=== PATIENT | female | born 1945 | race Caucasian/White ===

== ENCOUNTER → 2017-09-08 | Outpatient (CLI) | payer MEDICARE, OTHER ==
[~2017-09-08] MED LIST: ACET500T68 PO; ALLO-119 PO; AMIT-106 PO; ASPI-715 PO; ASPI-757 PO; ATOR20TA22 PO; CALC-597 PO; CALC-901 PO; CALC600T71 PO; CETI10CA8 PO; CYCL1DRO6 OU; DICY10CA11 PO; DICY10CA62 PO; DILT180C73 PO; DOXY-179 PO; ESOM40CA42 PO; GABA-1 PO; GLUC100026 PO; HCTZ25 PO; LEVO100T95 PO; LEVO150C4 PO; LEVO175T42 PO; LOR5/325 PO; LOSA100T67 PO; METF500T4 PO; METO50TA19 PO; MULT-865 PO; MULT1TAB64 PO; NAPR-1043 PO; NAPR-744 PO; NEB5 PO; OLM20 PO; OMEG-11 PO; OMEP-137 PO; OMEP40CA48 PO; POTASSIUM; RANI-324 PO; ROSU20TA13 PO; SIMV-44 PO; SIMV-54 PO; WARF5TAB23 PO; [UNRECOGNIZED DRUG - CODE] PO; vit d
== END ==
LOC: LAB 11:18
PROVIDERS: ATTEND Emergency Medicine
DX: E11.9 Type 2 diabetes mellitus without complications (principal)
CPT/HCPCS: 36415; 82465; 83718; 84478

== ENCOUNTER → 2017-11-18 | Outpatient (CLI) | payer MEDICARE, OTHER ==
[~2017-11-18] MED LIST changes: +ALBU8.5H IH; -RANI-324 PO; +RANI-366 PO
--- NOTE | 2017-11-18 10:03 | EKG ---
FACILITY: [facility] PATIENT NAME: ESA CROCKER : [id number] MR: [id number] V: [id number] EXAM DATE: ORDERING PHYSICIAN: KENTRELL CISNEROS TECHNOLOGIST: KARLEE KNIGHT Test Reason : PRE OP CLEARANCE Blood Pressure : / mmHG Vent. Rate : 075 BPM Atrial Rate : 075 BPM P-R Int : 224 ms QRS Dur : 086 ms QT Int : 400 ms P-R-T Axes : 000 023 008 degrees QTc Int : 446 ms Sinus rhythm with 1st degree AV block Septal infarct , age undetermined Abnormal ECG No previous ECGs available Confirmed by TERESITA MADSEN ([id number]) on 11/18/2017 2:59:01 PM Referred By: Confirmed By:TERESITA MADSEN
== END ==
LOC: RESP 09:45
PROVIDERS: ATTEND Emergency Medicine
DX: Z01.818 Encounter for other preprocedural examination (principal); Z01.810 Encounter for preprocedural cardiovascular examination; R94.31 Abnormal electrocardiogram [ECG] [EKG]
CPT/HCPCS: 81001

== ENCOUNTER 2017-12-03 00:51 | Day surgery (SDC) | payer MEDICARE, OTHER ==
[2017-12-03] VITALS (7 sets, daily range): BP systolic 100–125; BP diastolic 57–76
[~2017-12-03] VITALS: Ht 157.5 cm; Wt 108.9 kg
[2017-12-03] MEDS ORDERED: PROPOFOL EMUL(*) 10MG/ML 20 ML 20 ML ONE (06:04)
[2017-12-03] MEDS ORDERED: ONDANSETRON 4 MG/2 ML VIAL ONE (06:04)
[2017-12-03] MEDS ORDERED: LIDOCAINE MPF 1% 5 ML VIAL ONE (06:04)
[2017-12-03] MEDS ORDERED: METOCLOPRAMIDE 10 MG/2 ML SDV ONE (06:04)
[2017-12-03] MEDS ORDERED: DEXAMETHASONE SOD 4 MG/ML VIAL ONE (06:05)
[2017-12-03] MEDS ORDERED: fentaNYL CITR 100 MCG/2 ML AMP ONE ×2 (07:10→09:15)
[2017-12-03] MEDS ORDERED: NORMOSOL R SOLN(*) 1000 ML BAG 1,000 ML IV PRN (07:25)
[2017-12-03] MEDS ORDERED: ceFAZolin(*) 2GM/D5W 50ML 50 ML IVPB ONE (07:25)
[2017-12-03] MEDS ORDERED: LIDOCAINE/SOD BICARB 8.4% SYR ID ONE (07:25)
[2017-12-03] MEDS ORDERED: MIDAZOLAM 2 MG/2 ML VIAL IVP PRN (07:25)
[2017-12-03] MEDS ORDERED: BUPIV/EPI 0.25% 1:200,000 50ML INFIL ONE (07:47)
[2017-12-03] MEDS ORDERED: MORPHINE 10 MG/ML SYR ONE (07:47)
[2017-12-03] MEDS ORDERED: NS(*) 0.9% 10 ML VIAL 10 ML ONE (07:47)
[2017-12-03] MEDS ORDERED: LIDO/EPI 1% MDV 1:100,000 20ML INFIL ONE (07:48)
[2017-12-03] MEDS ORDERED: HYDR-4309 PO (08:59)
[2017-12-03] MEDS ORDERED: CEPH500T7 PO (09:00)
[2017-12-03] MEDS ORDERED: APAP/HYDROCODONE 325/5 TAB ONE (10:51)
--- NOTE | 2017-12-04 07:30 | OPERATIVE REPORT 1 ---
EVENT DATE: December 03, 2017 SURGEON: Benito Dockery M.D. ANESTHESIOLOGIST: Cesario Calhoun MD ANESTHESIA: LMA APPLICATION PENETRATION TESTER: JOSEPH Mitchell PREOPERATIVE DIAGNOSIS 1. Left knee medial and lateral meniscus tear. 2. Chondromalacia degenerative joint disease (DJD). POSTOPERATIVE DIAGNOSIS 1. Left knee medial and lateral meniscus tear. 2. Chondromalacia degenerative joint disease (DJD). PROCEDURE PERFORMED 1. Left knee arthroscopy with partial and medial lateral meniscectomies. 2. Chondroplasty, tricompartmental. 3. Loose body removal of suprapatellar pouch, 5x5 mm. ESTIMATED BLOOD LOSS Minimal. DRAINS None. SPECIMENS None. COMPLICATIONS None. TOURNIQUET TIME See anesthesia record history. IMPLANTS USED None. INDICATIONS Ms. Lainez is a 71-year-old female with a history of left knee pain. She was seen and evaluated in the orthopaedic surgery clinic and found to have a complex tear of anterior posterior horn, medial and lateral meniscus as well as some tricompartmental DJD and chondromalacia. Following discussion of risks, benefits, alternatives and possible complications, she wished to proceed with surgical intervention. DESCRIPTION OF PROCEDURE The patient was brought to the operating room and placed on the operating table in supine position. Appropriate time-out was performed, identifying patient, limb of surgery and surgical procedure. The patient was given preoperative IV antibiotics and underwent LMA anesthesia. A well-padded tourniquet was placed on the left lower extremity. The left lower extremity was prepped and draped in sterile fashion. Knee examination demonstrated negative Matt's, negative anterior and posterior drawer. MCL and ACL were stable. Once complete, superior medial inferior portal was established after tourniquet was brought up to 300 mmHg and the knee was insufflated. Distal lateral camera portal was established. The camera was placed intra-articularly. Suprapatellar pouch demonstrated some loose articular cartilage debris and one larger body, 5x5 mm, in particular. The patella and trochlea both demonstrate Grade 2-3 change but the patella is tracking centrally at 39 degrees engagement. The medial compartment was visualized. Medial portal was established under direct visualization. A probe was placed intra-articularly. There was complex tearing of the posterior horn and body of the medial meniscus. This was debrided with combination of meniscal biters and jacinto until a nice smooth transition was obtained. There was some Grade 2 chondral wear on the medial femoral condyle and tibial plateau. These were debrided with chondroplasty. The loose body that was seen previously was removed with shaver as were the smaller loose bodies in the suprapatellar pouch. The ACL and PCL were probed and felt to be stable. Lateral compartment demonstrated complex tearing of the lateral meniscus as well. This was debrided with shaver until smooth transitions of the posterior horn body and anterior horn were established. There was also some Grade 2 chondral wear, which was debrided with chondroplasty. The area of Grade 3 change was then debrided with chondroplasty and the shaver through both the medial and lateral portals until stable transitions were obtained. All instrumentation was then removed. The knee was drained. Portal sites were closed with 4-0 Monocryl. Standard postoperative anesthetic cocktail was injected intra-articularly. Postoperative dressing was applied. The patient was extubated and transferred to the PACU in stable condition. She will placed on my knee arthroscopy protocol. Followup with me in 10-14 days. BHUMIKA
== END 2017-12-03 09:45 | disposition home or self-care (01) ==
LOC: OR 00:51
PROVIDERS: ATTEND Orthopaedic Surgery
DX: S83.282A Other tear of lateral meniscus, current injury, left knee, initial encounter (principal); S83.242A Other tear of medial meniscus, current injury, left knee, initial encounter; E11.9 Type 2 diabetes mellitus without complications
CPT/HCPCS: 29880; 36416; 82948; J1100; J2001; J2270; J2405; J2704; J2765; J3010; J0690

== ENCOUNTER → 2018-04-26 | Outpatient (CLI) | payer MEDICARE, OTHER ==
[~2018-04-26] MED LIST changes: +CEPH500T7 PO; +DIPH0.5D12 IM; +GLIM1TAB25 PO; +HYDR-653 PO; -LOSA100T67 PO; +LOSA100T69 PO; -ROSU20TA13 PO; +ROSU20TA5 PO
[2018-04-26 13:33] LABS: PLATELET COUNT, AUTOMATED 315 K/uL (150-450)
[2018-04-26 14:03] LABS: LDL CHOLESTEROL 58 mg/dl
== END ==
LOC: LAB 12:45
PROVIDERS: ATTEND Emergency Medicine
DX: E11.9 Type 2 diabetes mellitus without complications (principal); E03.9 Hypothyroidism, unspecified; I10 Essential (primary) hypertension
CPT/HCPCS: 36415; 82040; 82247; 82310; 82374; 82435; 82465; 82565; 82947; 83036; 83718; 84075; 84132; 84155; 84295; 84443; 84450; 84460; 84478; 84520; 85025

== ENCOUNTER → 2018-09-26 | Outpatient (CLI) | payer MEDICARE, OTHER ==
[~2018-09-26] MED LIST changes: +EMPA10TA PO; -LOSA100T69 PO; +LOSA100T75 PO; +PNEU0.5D3 IM
== END ==
LOC: LAB 10:18
PROVIDERS: ATTEND Emergency Medicine
DX: E11.9 Type 2 diabetes mellitus without complications (principal)
CPT/HCPCS: 36415; 83036

== ENCOUNTER → 2018-09-28 | Outpatient (CLI) | payer MEDICARE, OTHER | LOC: LAB 14:58 | PROVIDERS: ATTEND Emergency Medicine | DX: R19.7 Diarrhea, unspecified (principal) | CPT/HCPCS: 87045; 87177; 87493 ==

== ENCOUNTER → 2018-10-28 | Outpatient (CLI) | payer MEDICARE, OTHER ==
[~2018-10-28] MED LIST changes: -DIPH0.5D12 IM; +DIPH0.5S2 IM
[2018-10-28 16:30] LABS: PLATELET COUNT, AUTOMATED 310 K/uL (150-450)
--- NOTE | 2018-10-28 16:44 | EKG ---
FACILITY: [facility] - [place] PATIENT NAME: ESA CROCKER : [id number] MR: [id number] V: [id number] EXAM DATE: ORDERING PHYSICIAN: TERESITA HUMMEL TECHNOLOGIST: KASEY Test Reason : PRE OP Blood Pressure : / mmHG Vent. Rate : 076 BPM Atrial Rate : 076 BPM P-R Int : 212 ms QRS Dur : 086 ms QT Int : 410 ms P-R-T Axes : 050 -22 -13 degrees QTc Int : 461 ms Sinus rhythm with 1st degree AV block Low voltage QRS Septal infarct (cited on or before 18-NOV-2017) Abnormal ECG When compared with ECG of 18-NOV-2017 08:50, No significant change was found Confirmed by Joao Reyna ([id number]) on 10/28/2018 10:04:01 PM Referred By: ESTEPHANIE Confirmed By:Joao Keith
== END ==
LOC: LAB 16:09
PROVIDERS: ATTEND Surgery
DX: R94.31 Abnormal electrocardiogram [ECG] [EKG] (principal); E11.9 Type 2 diabetes mellitus without complications
CPT/HCPCS: 36415; 82310; 82374; 82435; 82565; 82947; 84132; 84295; 84520; 85025; 93005

== ENCOUNTER 2018-11-02 01:53 | Day surgery (SDC) | payer MEDICARE, OTHER ==
[2018-11-02] VITALS (7 sets, daily range): BP systolic 88–138; BP diastolic 33–90
[~2018-11-02] VITALS: Ht 157.5 cm; Wt 104.8 kg
[2018-11-02] MEDS ORDERED: PROPOFOL EMUL(*) 10MG/ML 20 ML 20 ML ONE ×3 (07:11→12:27)
[2018-11-02] MEDS ORDERED: NORMOSOL R SOLN(*) 1000 ML BAG 1,000 ML IV PRN (11:05)
[2018-11-02] MEDS ORDERED: LIDOCAINE/SOD BICARB 8.4% SYR ID ONE (11:05)
--- NOTE | 2018-11-02 12:54 | Short(Outpt) Discharge Summary ---
Discharge Summary Reason for Hosp/Final Diag: (1) Loose stools Status: Chronic Hospital Course & Plan: Colonoscopy with polypectomy x3 and random biopsies completed without problems. (2) Abdominal pain Status: Chronic (3) GERD (gastroesophageal reflux disease) Status: Chronic Hospital Course & Plan: EGD with biopsies completed without problems. Departure Discharge to: Home, Self Care Discharge Instructions Home Meds Active Scripts Metformin Hcl (METFORMIN HCL ER) 500 Mg Tab.er.24, 1 TAB PO QDAY, #90 TAB 3 Refills Prov:KENTRELL CISNEROS MD 10/14/18 Levothyroxine Sodium (LEVOTHYROXINE SODIUM) 175 Mcg Tablet, 175 MCG PO QDAY, #90 TAB 1 Refill Prov:KENTRELL CISNEROS MD 09/28/18 Dicyclomine Hcl (DICYCLOMINE HCL) 10 Mg Capsule, 10 MG PO BID, #180 CAPSULE 1 Refill Prov:KENTRELL CISNEROS MD 09/28/18 Empagliflozin (Jardiance) 10 Mg Tablet, 1 TAB PO DAILY, #30 TAB 2 Refills Prov:KENTRELL CISNEROS MD 09/27/18 Rosuvastatin Calcium (Rosuvastatin Calcium) 20 Mg Tablet, 1 TAB PO DAILY, #90 TAB 4 Refills Prov:KENTRELL CISNEROS MD 09/26/18 Metoprolol Succinate (METOPROLOL SUCCINATE) 50 Mg Tab.er.24h, 1 TAB PO BID, #180 TAB 3 Refills Prov:KENTRELL CISNEROS MD 08/16/18 Losartan Potassium (LOSARTAN POTASSIUM) 100 Mg Tablet, 100 MG PO QDAY, #90 TAB 3 Refills Prov:KENTRELL CISNEROS MD 07/18/18 Amitriptyline Hcl (AMITRIPTYLINE HCL) 25 Mg Tablet, 25 MG PO QHS, #90 TAB 3 Refills Prov:KENTRELL CISNEROS MD 07/01/18 Aspirin (ASPIRIN) 325 Mg Tablet, 325 MG PO DAILY PRN for atril fibrillation for 90 Days, #90 TAB 6 Refills Prov:KENTRELL CISNEROS MD 04/27/18 Allopurinol (ZYLOPRIM) 300 Mg Tablet, 300 MG PO QDAY, #90 TAB 0 Refills Prov:KENTRELL CISNEROS MD 02/14/18 Albuterol Sulfate 90 Mcg/Act (PROAIR HFA 90 MCG/ACT) 8.5 Gm Hfa.aer.ad, 1-2 PUFF IH 3-4XD, #1 INHALER Prov:KENTRELL CISNEROS MD 11/04/17 Omeprazole (OMEPRAZOLE) 20 Mg Tablet.dr, 20 MG PO QDAY, #90 TAB 3 Refills Prov:KENTRELL CISNEROS MD 09/13/17 Reported Medications Cyclosporine (RESTASIS) 1 Each Droperette, 2 GTT OU DAILY 05/11/17 Cetirizine Hcl (ZYRTEC) 10 Mg Capsule, 10 MG PO QHS, CAPSULE 05/11/17 Lactase (Lactaid) 3,000 Unit Tablet, 9000 UNITS PO PRN PRN for with meals 05/11/17 Multivitamin (DAILY MULTIPLE VITAMIN) 1 Each Tablet, 1 TAB PO DAILY 12/23/16 Calcium Carbonate/Vitamin D3 (CALCIUM 600 + VIT D TABLET) 1 Each Tablet, 1 EACH PO DAILY 12/23/16 Discontinued Scripts Glimepiride (GLIMEPIRIDE) 1 Mg Tablet, 1 MG PO QDAY, #90 TAB 3 Refills Prov:KENTRELL CISNEROS MD 04/27/18 Diet: Regular Activity: As Tolerated Special Instructions: Your upper endoscopy and colonoscopy were completed without problems. I performed 2 biopsies from your stomach and biopsied your colon to look for possible causes of your symptoms. I also removed 3 small polyps from your colon and they were sent to pathology. My office will call you in the next day or two to schedule a follow up appointment to see me in my office to discuss all your biopsy results and your symptoms and see if there's anything that can be done to improve your symptoms. Problem Qualifiers (1) Abdominal pain: Abdominal location: generalized Qualified Codes: R10.84 - Generalized abdominal pain (2) GERD (gastroesophageal reflux disease): Esophagitis presence: without esophagitis Qualified Codes: K21.9 - Gastro- esophageal reflux disease without esophagitis TERESITA HUMMEL MD November 02, 2018 12:54
== END 2018-11-02 13:50 | disposition home or self-care (01) ==
LOC: OR 01:53
PROVIDERS: ATTEND Surgery
DX: K31.7 Polyp of stomach and duodenum (principal); D12.0 Benign neoplasm of cecum; E11.9 Type 2 diabetes mellitus without complications; I10 Essential (primary) hypertension
CPT/HCPCS: 00813; 36415; 36416; 43251; 45380; 45385; 82948; 83516; 87077; 88305; 88342; J2704

== ENCOUNTER → 2018-11-11 | Outpatient (CLI) | payer MEDICARE, OTHER ==
[~2018-11-11] MED LIST changes: +CLOB15CR22 TP; +RANI300C8 PO
== END ==
LOC: LAB 08:33
PROVIDERS: ATTEND Internal Medicine Endocrinology, Diabetes & Metabolism
DX: E03.9 Hypothyroidism, unspecified (principal); R19.5 Other fecal abnormalities; R10.9 Unspecified abdominal pain
CPT/HCPCS: 36415; 84439; 84443

== ENCOUNTER → 2018-11-11 | Outpatient (CLI) | payer MEDICARE, OTHER ==
[~2018-11-11] MED LIST changes: +BARIUM SULFATE 176 GM BTL PO ONE; +BARIUM SULFATE 340 GM POWD ONE
--- NOTE | 2018-11-11 10:51 | RADIOLOGY IMAGING REPORT ---
[place] [facility] [place] NAME: Jessa Lainez : 1945 MR: [id number] V: [id number] EXAM DATE: ORDERING PHYSICIAN: TERESITA HUMMEL TECHNOLOGIST: Location: [facility] [place] Patient: Jessa Lainez : 1945 Visit/Account:[id number] Date of Sevice: 11/11/2018 GALLBLADDER HISTORY: The stools, abdomen pain COMPARISON: None. FINDINGS: Gallbladder: Unremarkable; no stones or sludge. Liver: Negative. Common duct: Normal, 7.5 mm diameter. Pancreas: Partially obscured by bowel, visualized aspects unremarkable. Right kidney: Right kidney appears unremarkable measuring 9.6 cm in length Upper abdominal aorta and IVC: Patent. Ascites: None visualized. IMPRESSION: Unremarkable right upper quadrant ultrasound Report Dictated By: Kaykay Shin MD at 11/11/2018 10:26 AM Report E-Signed By: Kaykay Shin MD at 11/11/2018 10:48 AM WSN:[email or web address]
--- NOTE | 2018-11-11 10:53 | RADIOLOGY IMAGING REPORT ---
FACILITY: [facility] - [place] PATIENT NAME: Jessa Lainez : 1945 MR: [id number] V: [id number] EXAM DATE: ORDERING PHYSICIAN: TERESITA HUMMEL TECHNOLOGIST: Location: [facility] - [place] Patient: Jessa Lainez : 1945 Visit/Account:[id number] Date of Sevice: 11/11/2018 THYROID HISTORY: Right thyroidectomy several years ago COMPARISON: December 13, 2014 FINDINGS: SIZE: Normal. Right lobe: Surgically absent Left lobe: 3.5 x 1.2 x 1.2 cm PARENCHYMA: Homogeneous. NODULES: * Left lobe: * None discrete. Isthmus: * None discrete. VASCULARITY: Within normal limits. ADDITIONAL FINDINGS: None. IMPRESSION: Postsurgical changes from a right hemithyroidectomy No nodules identified in the left lobe REFERENCE: 2015 [place] [employer] Management Guidelines for Adult Patients with Thyroid Nodules and D ifferentiated Thyroid Cancer: The [place] [employer] Guidelines Task Force on Thyroid Nodul es and Differentiated Thyroid Cancer. SONOGRAPHIC PATTERNS: * Benign: Purely cystic nodules (no solid component); estimated risk of malignancy <1 percent; no bi opsy recommended. * Very Low Suspicion: Spongiform or partially cystic nodules without any of the sonographic features described in low, intermediate, or high suspicion patterns; estimated risk of malignancy <3 percent; consider FNA at > 2 cm (Observation without FNA is also a reasonable option). * Low Suspicion: Isoechoic or hyperechoic solid nodule, or partially cystic nodule with eccentric so lid areas, without microcalcification, irregular margin or ETE (extra-thyroidal extension), or taller than wide shape; estimated risk of malignancy 5-10 percent; recommend FNA at >1.5 cm. * Intermediate Suspicion: Hypoechoic solid nodule with smooth margins without microcalcifications, E TE (extra-thyroidal extension), or taller than wide shape; estimated risk of malignancy 10-20 percent ; recommend FNA at > 1 cm. * High Suspicion: Solid hypoechoic nodule or solid hypoechoic component of a partially cystic nodule with one or more of the following features: irregular margins (infiltrative, microlobulated), microc alcifications, taller than wide shape, rim calcifications with small extrusive soft tissue component, evidence of ETE (extra-thyroidal extension); estimated risk of malignancy >70-90 percent; recommend FNA at > 1 cm. NOTES: * Although a sonographically suspicious subcentimeter thyroid nodule without evidence of extrathyroi aria extension or sonographically suspicious lymph nodes may be observed with close sonographic follow -up rather than pursuing immediate FNA, patient age and preference may modify decision-making. A > 50% interval increase in nodule volume and/or development of new suspicious sonographic features are felt to be a valid reasons for potential re-aspiration of a nodule previously shown to have benig n FNA cytology. Report Dictated By: Kaykay Shin MD at 11/11/2018 10:48 AM Report E-Signed By: Kaykay Shin MD at 11/11/2018 10:50 AM WSN:[email or web address]
--- NOTE | 2018-11-11 11:27 | RADIOLOGY IMAGING REPORT ---
FACILITY: [facility] PATIENT NAME: Jessa Lainez : 1945 MR: [id number] V: [id number] EXAM DATE: ORDERING PHYSICIAN: TERESITA HUMMEL TECHNOLOGIST: Location: Patient: Jessa Lainez : 1945 Visit/Account:[id number] Date of Sevice: 11/11/2018 Exam type: XR UPPER GI & SM BOWEL History: Reflux, constipation, diabetic Comparison: None. Findings: Double contrast upper GI series was performed with thick and thin barium and air contrast. There is no demonstration of a hiatal hernia, esophageal narrowing or mucosal erosion however there was a larg e amount of gastroesophageal reflux observed. The barium was followed throughout the normal-appearin g small bowel to the unremarkable terminal ileum. Transit time to the right-sided colon was 15 minut es. No mucosal abnormality the small bowel is seen. There is no evidence of focal bowel dilatation or extrinsic mass effect. The dose area product was 1559.89 micro-Kerr per meter squared IMPRESSION: 1. Large amount of gastroesophageal reflux although no demonstration of a hiatal hernia, esophageal narrowing or mucosal erosion . The remainder of the upper GI series and small bowel follow-through is unremarkable Report Dictated By: Kaykay Shin MD at 11/11/2018 11:20 AM Report E-Signed By: Kaykay Shin MD at 11/11/2018 11:23 AM WSN:[email or web address]
== END ==
LOC: RAD 01:33
PROVIDERS: ATTEND Surgery
DX: K21.9 Gastro-esophageal reflux disease without esophagitis (principal)
CPT/HCPCS: 74245; 76536; 76705

== ENCOUNTER → 2018-11-16 | Outpatient (CLI) | payer MEDICARE, OTHER ==
[~2018-11-16] MED LIST changes: -BARIUM SULFATE 176 GM BTL PO ONE; -BARIUM SULFATE 340 GM POWD ONE
== END ==
LOC: LAB 08:08
PROVIDERS: ATTEND Student in an Organized Health Care Education/Training Program
DX: N89.8 Other specified noninflammatory disorders of vagina (principal)
CPT/HCPCS: 87210

== ENCOUNTER → 2019-01-25 | Outpatient (CLI) | payer MEDICARE, OTHER ==
[~2019-01-25] MED LIST changes: -RANI-366 PO; +RANI-54 PO
== END ==
LOC: LAB 10:18
PROVIDERS: ATTEND Emergency Medicine
DX: E11.9 Type 2 diabetes mellitus without complications (principal)
CPT/HCPCS: 36415; 83036

== ENCOUNTER → 2019-01-25 | Outpatient (CLI) | payer MEDICARE, OTHER | LOC: LAB 10:14 | PROVIDERS: ATTEND Internal Medicine Endocrinology, Diabetes & Metabolism | DX: E03.9 Hypothyroidism, unspecified (principal) | CPT/HCPCS: 36415; 84443 ==